=== PATIENT | female | born 1945 | race Caucasian/White ===

== ENCOUNTER → 2016-08-10 | Outpatient (CLI) | payer MEDICARE ==
--- NOTE | 2016-08-14 10:48 | MM ---
Reason for exam: screening (asymptomatic). Last mammogram was performed 1 year ago. History: Patient is postmenopausal. Benign excisional biopsy of the left breast, 1989. Physical Findings: A clinical breast exam by your physician is recommended on an annual basis and results should be correlated with mammographic findings. MG 3D Screening Mammo W/Cad Bilateral CC and MLO view(s) were taken. Prior study comparison: August 08, 2015, bilateral MG 3d screening mammo w/cad. August 06, 2014, bilateral MG screening mammo w CAD. July 10, 2012, bilateral digital screening mammo w/CAD. The breast tissue is heterogeneously dense. This may lower the sensitivity of mammography. Finding: There are typically benign round calcifications in the right breast. Developing asymmetry in the left breast anterior depth outer aspect. ASSESSMENT: Incomplete: need additional imaging evaluation, BI-RAD 0 RECOMMENDATION: Ultrasound of the right breast. [facility] will attempt to contact patient to return for ultrasound.
== END | disposition home or self-care (01) ==
LOC: RADMAMWWP 13:59
PROVIDERS: ATTEND Obstetrics & Gynecology
DX: Z13.1 Encounter for screening for diabetes mellitus (principal)
CPT/HCPCS: 77063; G0202

== ENCOUNTER → 2016-08-17 | Outpatient (CLI) | payer MEDICARE ==
--- NOTE | 2016-08-20 08:42 | USB ---
Reason for exam: additional evaluation requested from abnormal screening. History: Patient is postmenopausal. Benign excisional biopsy of the left breast, 1989. Physical Findings: Nurse did not find any significant physical abnormalities on exam. US Breast Workup Limited LT Left breast ultrasound demonstrates no cystic or solid lesion seen. These results were verbally communicated with the patient and result sheet given to the patient on 08/17/16. ASSESSMENT: Negative, BI-RAD 1 RECOMMENDATION: Return to routine screening mammogram schedule for both breasts.
== END | disposition home or self-care (01) ==
LOC: RADUSWWP 14:49
PROVIDERS: ATTEND Obstetrics & Gynecology
DX: R92.8 Other abnormal and inconclusive findings on diagnostic imaging of breast (principal)

== ENCOUNTER → 2016-10-18 | Outpatient (CLI) | payer MEDICARE ==
--- NOTE | 2016-10-19 10:20 | ECHOF ---
Referral Reason:R01.1 CARDIAC MURMUR UNSPECIFIED MEASUREMENTS -------- HEIGHT: 172.7 cm WEIGHT: 96.2 kg BP: 143/65 RVIDd: 2.6 cm (< 3.3) IVSd: 1.1 cm (0.6 - 1.1) LVIDd: 4.7 cm (3.9 - 5.3) LVPWd: 1.2 cm (0.6 - 1.1) IVSs: 1.5 cm LVIDs: 3.0 cm LVPWs: 1.5 cm LA Diam: 3.0 cm (2.7 - 3.8) LAESV Index (A-L): 37.47 ml/m Ao Diam: 3.3 cm (2.0 - 3.7) AV Cusp: 2.0 cm (1.5 - 2.6) MV EXCURSION: 10.738 mm (> 18.000) MV EF SLOPE: 25 mm/s (70 - 150) EPSS: 1.2 cm MV E Jhon: 1.02 m/s MV DecT: 233 ms MV A Jhon: 1.19 m/s MV E/A Ratio: 0.86 AV maxP.52 mmHg AV meanP.33 mmHg RAP: 5.00 mmHg RVSP: 29.32 mmHg FINDINGS -------- Sinus rhythm. This was a technically adequate study. The left ventricular size is normal. There is borderline concentric left ventricular hypertrophy. The right ventricle is normal in size. LA is midly dilated 29-33ml/m2. The right atrium is normal in size. There is mild aortic valve sclerosis. Peak/mean gradient across the Aortic Valve is 14.52mmHg / 7.33mmHg. Mild mitral annular calcification present. There is trace to mild mitral regurgitation. Mild tricuspid regurgitation present. Right ventricular systolic pressure is normal at < 35 mmHg. Pulmonic valve appears structurally normal. The aortic root, ascending aorta and aortic arch are normal. The ascending aorta is dilated measuring up to 37 mm The inferior vena cava is mildly dilated. The pericardium is normal. CONCLUSIONS -------- 1. Sinus rhythm. 2. Mild mitral annular calcification present. 3. There is trace to mild mitral regurgitation. 4. Mild tricuspid regurgitation present. 5. Right ventricular systolic pressure is normal at < 35 mmHg. 6. Pulmonic valve appears structurally normal. 7. The aortic root, ascending aorta and aortic arch are normal. 8. The ascending aorta is dilated measuring up to 37 mm 9. The inferior vena cava is mildly dilated. 10. The pericardium is normal. 11. This was a technically adequate study. 12. The left ventricular size is normal. 13. There is borderline concentric left ventricular hypertrophy. 14. The right ventricle is normal in size. 15. LA is midly dilated 29-33ml/m2. 16. The right atrium is normal in size. 17. There is mild aortic valve sclerosis. 18. Peak/mean gradient across the Aortic Valve is 14.52mmHg / 7.33mmHg. CAT SKINNER: Marialuisa Pickens RDCS
== END | disposition home or self-care (01) ==
LOC: RADECHMAIN 14:34
PROVIDERS: ATTEND Family Medicine
DX: I08.3 Combined rheumatic disorders of mitral, aortic and tricuspid valves (principal); Z00.00 Encounter for general adult medical examination without abnormal findings
CPT/HCPCS: 93306

== ENCOUNTER → 2018-06-19 | Outpatient (CLI) | payer MEDICARE ==
--- NOTE | 2018-06-19 16:21 | BD ---
EXAMINATION TYPE: Axial Bone Density DATE OF EXAM: 06/19/2018 COMPARISON: 07.10.2012 CLINICAL HISTORY: 72 YR OLD FEMALE....ICD-10 CODE: N95.1 POST MENOPAUSAL SYMPTOMS Height: 65.8 Weight: 232 FRAX RISK QUESTIONS: NOTHING TO NOTE RISK FACTORS HISTORY OF: CHILD ONLY Postmenopausal woman: YES AT AGE 48 Lost more than 2 inches in height since high school: YES MEDICATIONS: Thyroid Medications: YES, SYNTHROID, FOR ABOUT 40 YRS Additional Medications: OMEGA 3, VIT D AND CALCIUM Additional History: HX OF LT TKR EXAM MEASUREMENTS: Bone mineral densitometry was performed using the [employer] System. Bone mineral density as measured about the Lumbar spine is: ----- L1-L4(G/cm2): 1.180 T Score Values are as follows: ----- L1: -2.3 ----- L2: 0.5 ----- L3: 0.4 ----- L4: 0.9 ----- L1-L4: 1.180 Bone mineral density has: Increased 4.3% SINCE 07.10.2012 STUDY Bone mineral density about the R hip (g/cm2): 1.015 Bone mineral density about the L hip (g/cm2): 1.019 T Score values are as follows: -----R Neck: -1.0 -----L Neck: -1.1 -----R Total: 0.1 -----L Total: 0.1 Bone mineral density has: Decreased -3.7% SINCE 07.10.2012 STUDY FRAX%s: THERE IS A 9.1% CHANCE FOR A MAJOR OSTEOPOROTIC FX AND A 1.4% FOR HIP.....PROBABILITY OF F X IN 10 YRS TIME IMPRESSION: Osteopenia (T Score between -2.5 and -1). There is slightly increased risk of fracture and the patient may be considered for treatment. Re-Screen 2-5 years. NOTE: T-SCORE=SD OF THE YOUNG ADULT MEAN.
== END | disposition home or self-care (01) ==
LOC: RADBDWWP 09:11
PROVIDERS: ATTEND Obstetrics & Gynecology
DX: Z13.820 Encounter for screening for osteoporosis (principal); M85.80 Other specified disorders of bone density and structure, unspecified site; N95.1 Menopausal and female climacteric states
CPT/HCPCS: 77080

== ENCOUNTER → 2018-08-15 | Outpatient (CLI) | payer MEDICARE ==
--- NOTE | 2018-08-18 12:14 | MM ---
Reason for exam: screening (asymptomatic). Last mammogram was performed 2 years ago. History: Patient is postmenopausal. Benign excisional biopsy of the left breast, 1989. Physical Findings: A clinical breast exam by your physician is recommended on an annual basis and results should be correlated with mammographic findings. MG 3D Screening Mammo W/Cad Bilateral CC and MLO view(s) were taken. Prior study comparison: August 10, 2016, bilateral MG 3d screening mammo w/cad. August 08, 2015, bilateral MG 3d screening mammo w/cad. The breast tissue is heterogeneously dense. This may lower the sensitivity of mammography. There are benign appearing round calcifications bilaterally. There is no discrete abnormality. ASSESSMENT: Benign, BI-RAD 2 RECOMMENDATION: Routine screening mammogram of both breasts in 1 year.
== END | disposition home or self-care (01) ==
LOC: RADMAMWWP 10:40
PROVIDERS: ATTEND Obstetrics & Gynecology
DX: Z12.31 Encounter for screening mammogram for malignant neoplasm of breast (principal)
CPT/HCPCS: 77063; 77067

== ENCOUNTER → 2019-10-16 | Outpatient (CLI) | payer MEDICARE ==
--- NOTE | 2019-10-20 11:30 | MM ---
Reason for exam: screening (asymptomatic). Last mammogram was performed 1 year and 2 months ago. History: Patient is postmenopausal. Benign excisional biopsy of the left breast, 1989. Physical Findings: A clinical breast exam by your physician is recommended on an annual basis and results should be correlated with mammographic findings. MG 3D Screening Mammo W/Cad Bilateral CC and MLO view(s) were taken. XCCL view(s) were taken of the right breast. Prior study comparison: August 15, 2018, bilateral MG 3d screening mammo w/cad. August 10, 2016, bilateral MG 3d screening mammo w/cad. The breast tissue is heterogeneously dense. This may lower the sensitivity of mammography. There are benign appearing round calcifications bilaterally. There is no discrete abnormality. ASSESSMENT: Benign, BI-RAD 2 RECOMMENDATION: Routine screening mammogram of both breasts in 1 year.
== END | disposition home or self-care (01) ==
LOC: RADMAMWWP 10:38
PROVIDERS: ATTEND Family Medicine
DX: Z12.31 Encounter for screening mammogram for malignant neoplasm of breast (principal)
CPT/HCPCS: 77063; 77067

== ENCOUNTER → 2020-11-15 | Outpatient (CLI) | payer MEDICARE ==
--- NOTE | 2020-11-15 14:07 | USB ---
EXAMINATION TYPE: US breast complete LT DATE OF EXAM: 11/15/2020 COMPARISON: Mammogram same date CLINICAL HISTORY: Fullness left breast. Findings: All 4 quadrants, the retroareolar region of the left breast and the left axilla were scanned with ult rasound. There is an incidental cyst in the left breast at 2:00 measuring up to 0.4 cm. Minimal ductal ectasia is seen. Normal-appearing lymph node is noted in the left axilla. No sonographic correlate for left breast fullness. Clinical follow-up is recommended. IMPRESSION: No sonographic correlate for left breast fullness. Clinical follow-up is recommended. Bilateral mammogram is recommended in one year. BI-RADS 2, benign.
--- NOTE | 2020-11-15 14:28 | MM ---
Reason for exam: additional evaluation requested from prior study. Last mammogram was performed 1 year and 1 month ago. History: Patient is postmenopausal. Benign excisional biopsy of the left breast, 1989. Took hormonal contraceptives for 5 years beginning at age 18. Physical Findings: Nurse did not find any significant physical abnormalities on exam. MG 3D Diag Mammo W/Cad GODFREY Bilateral CC and MLO view(s) were taken. Prior study comparison: October 16, 2019, bilateral MG 3d screening mammo w/cad. August 15, 2018, bilateral MG 3d screening mammo w/cad. The breast tissue is heterogeneously dense. This may lower the sensitivity of mammography. No correlate for left breast swelling. Ultrasound recommended. These results were verbally communicated with the patient and result sheet given to the patient on 11/15/20. ASSESSMENT: Incomplete: need additional imaging evaluation, BI-RAD 0 RECOMMENDATION: Ultrasound of the left breast.
--- NOTE | 2020-11-15 15:25 | US ---
EXAMINATION TYPE: US carotid duplex BILAT DATE OF EXAM: 11/15/2020 COMPARISON: NONE CLINICAL HISTORY: R09.89 CAROTID BRUIT. Right pulsatile low right neck area. EXAM MEASUREMENTS: RIGHT: Peak Systolic Velocity (PSV) cm/sec ----- Right CCA: 41.0 ----- Right ICA: 74.5 ----- Right ECA: 70.8 ICA/CCA ratio: 1.8 RIGHT: End Diastole cm/sec ----- Right CCA: 9.9 ----- Right ICA: 24.2 ----- Right ECA: 0.6 LEFT: Peak Systolic Velocity (PSV) cm/sec ----- Left CCA: 64.0 ----- Left ICA: 79.5 ----- Left ECA: 57.8 ICA/CCA ratio: 1.2 LEFT: End Diastole cm/sec ----- Left CCA: 16.2 ----- Left ICA: 23.6 ----- Left ECA: 1.2 VERTEBRALS (direction of flow): Right Vertebral: Antegrade Left Vertebral: Antegrade Rhythm: Normal Tortuous Right CCA is noted proximally at patient's area of concern for pulsatile right supraclavicul ar area. Moderate mixed intimal wall changes are noted bilateral ICA and ECA, but PSV is wnl bilaterally. IMPRESSION: No sonographic evidence for hemodynamically significant stenosis in either carotid artery. Criteria for Assigning % of Stenosis / Diameter reduction (Estimation based on the indirect measurements of the internal carotid artery velocities (ICA PSV). 1. Normal (no stenosis)=ICA PSV < 125 cm/s: ratio < 2.0: ICA EDV<40 cm/s. 2. Less than 50% stenosis=ICA PSV < 125 cm/s: ratio < 2.0: ICA EDV<40 cm/s. 3. 50 to 69% stenosis=ICA PSV of 125 to 230 cm/s: ration 2.0 ? 4.0: ICA EDV 40-100 cm/s. 4. Greater than 70% stenosis to near occlusion= ICA PSV > 230 cm/s: ratio > 4.0: ICA EDV > 100 cm/s. 5. Near occlusion= ICA PSV velocities may be low or undetectable: variable ratio and ICA EDV. 6. Total occlusion=unable to detect flow.
== END | disposition home or self-care (01) ==
LOC: RADMAMWWP 12:37
PROVIDERS: ATTEND Family Medicine
DX: N63.21 Unspecified lump in the left breast, upper outer quadrant (principal); R92.8 Other abnormal and inconclusive findings on diagnostic imaging of breast; R09.89 Other specified symptoms and signs involving the circulatory and respiratory systems
CPT/HCPCS: 77066; 93880; 76641; G0279; 77062

== ENCOUNTER → 2021-11-23 | Outpatient (CLI) | payer MEDICARE ==
--- NOTE | 2021-11-24 15:34 | MM ---
Reason for Exam: Screening (asymptomatic). Last screening mammogram was performed 12 month(s) ago. Patient History: Menarche at age 11. First Full-Term at age 17. Postmenopausal. Hormonal Contraceptives for 5 years from age 18 until age 23. 1990, Benign Excisional Biopsy on the left side. Risk Values: Maria G 5 year model risk: 1.5%. NCI Lifetime model risk: 2.6%. Prior Study Comparison: 08/15/2018 Bilateral Screening Mammogram, [facility]. 10/16/2019 Bilateral Screening Mammogram, [facility]. 11/15/2020 Bilateral Diagnostic Mammogram, [facility]. Tissue Density: The breast tissue is heterogeneously dense. This may lower the sensitivity of mammography. Findings: Analyzed By CAD. Clustered group of calcifications are demonstrated in the right breast on the MLO view approximately 2.5 cm from the nipple in the anterior depth. New suspicious mass in either breast. Overall Assessment: Incomplete: need additional imaging evaluation, BI-RAD 0 Management: Diagnostic Mammogram of the right breast. A clinical breast exam by your physician is recommended on an annual basis and results should be correlated with mammographic findings. [facility] will attempt to contact patient to return for supplemental views and ultrasound if indicated. Electronically signed and approved by: Shayne Marin D.O.
== END | disposition home or self-care (01) ==
LOC: RADMAMWWP 16:11
PROVIDERS: ATTEND Family Medicine
DX: Z12.31 Encounter for screening mammogram for malignant neoplasm of breast (principal); Z78.0 Asymptomatic menopausal state
CPT/HCPCS: 77063; 77067

== ENCOUNTER → 2021-12-04 | Outpatient (CLI) | payer MEDICARE ==
--- NOTE | 2021-12-04 13:27 | MM ---
Reason for Exam: Additional evaluation requested from abnormal screening. Last screening mammogram was performed less than 1 month ago. Patient History: Menarche at age 11. First Full-Term at age 17. Postmenopausal. Hormonal Contraceptives for 5 years from age 18 until age 23. 1990, Benign Excisional Biopsy on the left side. Risk Values: Maria G 5 year model risk: 1.5%. NCI Lifetime model risk: 2.6%. Prior Study Comparison: 02/04/2005 Screening Mammogram, [facility]. 08/06/2014 Bilateral Screening Mammogram, [facility]. 08/08/2015 Bilateral Screening Mammogram, [facility]. 08/10/2016 Bilateral Screening Mammogram, [facility]. 08/17/2016 Left Diagnostic Ultrasound, [facility]. 08/15/2018 Bilateral Screening Mammogram, [facility]. 10/16/2019 Bilateral Screening Mammogram, [facility]. 11/15/2020 Bilateral Diagnostic Mammogram, [facility]. 11/23/2021 Bilateral MG 3D screening mammo w/cad, [facility]. Tissue Density: Right: The breast tissue is heterogeneously dense. This may lower the sensitivity of mammography. Findings: Analyzed By CAD. On magnification views, the questioned anterior calcifications represent benign vascular calcifications. No other specific abnormality seen. Overall Assessment: Benign, BI-RAD 2 Management: Screening Mammogram of both breasts in 1 year. 1. Patient should continue monthly self breast exams. 2. A clinical breast exam by your physician is recommended on an annual basis. 3. This exam should not preclude additional follow-up of suspicious palpable abnormalities. Results were given to the patient verbally at the time of exam. Electronically signed and approved by: Marguerite Orozco M.D. Radiologist
== END | disposition home or self-care (01) ==
LOC: RADMAMWWP 12:48
PROVIDERS: ATTEND Family Medicine
DX: R92.8 Other abnormal and inconclusive findings on diagnostic imaging of breast (principal)
CPT/HCPCS: 77065; G0279; 77061

== ENCOUNTER 2023-10-16 06:51 | Day surgery (SDC) | payer MEDICARE ==
[~2023-10-16 06:51] MED LIST: TETRACAINE 0.5% OPHTH (PF) DROPS 4 ML BTL OP PRN
[2023-10-16 07:20] VITALS: TEMP 97.1
[2023-10-16] MEDS: IV FLUID CONTINUATION 1,000 ML IV ONE (07:25)
[2023-10-16] MEDS: LACTATED RINGERS 1,000 ML IV SCH (07:25)
[2023-10-16] MEDS: CYCLOPENTOLATE 1% OPHTH SOLN 2 ML BTL OP PRN (07:30)
[2023-10-16] MEDS: PHENYLEPHRINE 2.5% OPHTH DRP 2ML OP PRN (07:33)
[2023-10-16 07:49] LABS: Glucose,Whole Blood 114 mg/dL (70-110)
[2023-10-16] MEDS ORDERED: MIDAZOLAM 2 MG/2 ML VIAL ONE (08:07)
[2023-10-16] MEDS ORDERED: fentaNYL (PF) 50 MCG/ML 2 ML AMP ONE (08:07)
[2023-10-16] MEDS: HYALURONATE SODIUM INTRAOCULAR 1 EACH SYRINGE (12MG/ML) INTRAOCULA ONE (08:30)
[2023-10-16] MEDS: LIDOCAINE 1% (PF) 10MG/ML VIAL SQ ONE (08:31)
[2023-10-16] MEDS: BALANCED SALT IRRIG SOLN COMB2 15 ML IRRIG.SOLN INTRAOCULA ONE (08:31)
[2023-10-16] MEDS: ATROPINE OPHTH SOLN 1% 5ML BTL RIGHT EYE ONE (08:31)
[2023-10-16] MEDS: EPINEPHrine (PF) 0.3 ML in BALANCED SALT IRRIG SOLN COMB2 500 ML IRRIGATION ONE (08:32)
[2023-10-16] MEDS: TIMOLOL 0.5% OPHTH DROPS 5 ML BTL OP PRN (08:32)
[2023-10-16] MEDS: MOXIFLOXACIN HCL 0.5% DROPS 3 ML BTL OP PRN (08:32)
--- NOTE | 2023-10-16 08:56 | P.OP ---
Date of Procedure: 10/16/23 Preoperative Diagnosis: NS & astig Postoperative Diagnosis: same Procedure(s) Performed: PIOL, OD Implants: [id number] 22.50 Anesthesia: MAC Surgeon: Rich Wheat Pathology: none sent Condition: stable Disposition: same day Indications for Procedure: blurry vision Operative Findings: radial tear, no crystalens
[2023-10-16 09:04] VITALS: PULSE 72
[2023-10-16 09:15] VITALS: BP 132/78; RESP 16
--- NOTE | 2023-10-17 00:52 | OP ---
OPERATIVE REPORT DATE OF SERVICE : 10/16/2023 PROCEDURES: Phacoemulsification of cataract and intraocular lens implant of the right eye. PREOPERATIVE DIAGNOSES: Nuclear sclerosis with regular astigmatism. POSTOPERATIVE DIAGNOSES: Nuclear sclerosis with regular astigmatism. ANESTHESIA: Topical. ESTIMATED BLOOD LOSS: None. SPECIMEN TAKEN: None. NARRATIVE: After obtaining the appropriate consent, the patient was brought to the operating room. There, she was placed under cardiac monitoring, prepped and draped in the usual sterile manner. She was approached from her right temporal side and using previously acquired corneal topography information, the axis of 179 degrees was identified and marked with a [facility] axis marker. This was followed by paracentesis at the 11 o'clock position through which 1% Xylocaine MPF 50:50 mix with balanced salt solution was injected into the anterior chamber. This was followed by stabilization of the anterior chamber with Amvisc. At the 9 o'clock position, a 2.75 mm ethan keratome was used to create a self- sealing corneal flap incision in a Langerman's fashion. Through this opening, a cystotome was used to begin a continuous tear capsulorrhexis. During the initiation of the rhexis as well as during the carrying of the capsulorrhexis using the Utrata forceps, the patient made several unexpected movements of the eye. However, there were no identified tears in the anterior capsule, which appeared to be intact and round at the end of the procedure. Hydrodissection and hydrodelineation of the lens were accomplished with balanced salt solution. Phacoemulsification of the lens utilizing phaco chop was accomplished in 10.88 seconds at 7.9% power. At this time, it was appreciated that there was a radial tear at approximately 7 o'clock in the patient's eye and careful removal of the remaining cortex using irrigation and aspiration was carried out through the rest of the capsule and especially carefully through where the radial tear was identified. Viscoelastic was then used to stabilize the capsular bag and a Bausch and Lomb MX60E 22.5 diopter posterior chamber intraocular lens was chosen as an alternative to the original Crystalens toric implant for an abundance of safety due to the placement of the Crystalens haptics, which would have coincided with the radial tear and possibly lead to an unstable position within the eye. The remaining viscoelastic was then removed from in and around the intraocular lens. The haptics of the MX60 resided at the 11 and 5 o'clock position within the eye. The eye was then brought to normal intraocular pressure through the paracentesis port and the wounds were confirmed watertight and stabilized using Tisseel. She then received 2 drops of 0.5% timolol followed by 2 drops of moxifloxacin and then was lightly patched and shielded in the usual manner. There were no additional complications encountered during the procedure. She tolerated the procedure well and was returned to outpatient recovery in good condition. MMKAREN / ALEXANDR: [id number] /
== END 2023-10-16 09:32 | disposition home or self-care (01) ==
LOC: OR 06:51
PROVIDERS: ATTEND Ophthalmology
DX: H52.221 Regular astigmatism, right eye (principal); H25.11 Age-related nuclear cataract, right eye; G47.33 Obstructive sleep apnea (adult) (pediatric); E03.9 Hypothyroidism, unspecified; Z79.890 Hormone replacement therapy; Z79.899 Other long term (current) drug therapy; Z98.890 Other specified postprocedural states
CPT/HCPCS: 66984; C1762; C1780; J2250; J0171; J3010; J2001

== ENCOUNTER 2023-11-13 10:06 | Day surgery (SDC) | payer MEDICARE, OTHER ==
[2023-11-11 12:07] VITALS: BMI 31.9
[2023-11-13 10:41] VITALS: TEMP 98
[2023-11-13] MEDS: IV FLUID CONTINUATION 1,000 ML IV ONE (10:43)
[2023-11-13 10:54] LABS: Glucose,Whole Blood 102 mg/dL (70-110)
[2023-11-13] MEDS: CYCLOPENTOLATE 1% OPHTH SOLN 2 ML BTL OP PRN (10:55)
[2023-11-13] MEDS: PHENYLEPHRINE 2.5% OPHTH DRP 2ML OP PRN (10:58)
[2023-11-13] MEDS: LACTATED RINGERS 1,000 ML IV SCH (10:59)
[2023-11-13] MEDS ORDERED: MIDAZOLAM 2 MG/2 ML VIAL ONE (11:51)
[2023-11-13] MEDS ORDERED: fentaNYL (PF) 50 MCG/ML 2 ML AMP ONE (11:51)
[2023-11-13] MEDS: MOXIFLOXACIN HCL 0.5% DROPS 3 ML BTL OP PRN (12:08)
[2023-11-13] MEDS: HYALURONATE SODIUM INTRAOCULAR 1 EACH SYRINGE (12MG/ML) INTRAOCULA ONE (12:08)
[2023-11-13] MEDS: LIDOCAINE 1% (PF) 10MG/ML VIAL MISCELLANE ONE (12:08)
[2023-11-13] MEDS: BALANCED SALT IRRIG SOLN COMB2 15 ML IRRIG.SOLN INTRAOCULA ONE (12:08)
[2023-11-13] MEDS: EPINEPHrine (PF) 0.3 ML in BALANCED SALT IRRIG SOLN COMB2 500 ML IRRIGATION ONE (12:09)
[2023-11-13] MEDS: TIMOLOL 0.5% OPHTH DROPS 5 ML BTL OP PRN (12:09)
--- NOTE | 2023-11-13 12:32 | P.OP ---
Date of Procedure: 11/13/23 Preoperative Diagnosis: NS & reg astig Postoperative Diagnosis: sane Procedure(s) Performed: PIOL, OS Implants: [id number] 22.50 Anesthesia: MAC Surgeon: Rich Wheat Pathology: none sent Condition: stable Disposition: same day Indications for Procedure: blurry vision Operative Findings: no complications
[2023-11-13 13:14] VITALS: BP 133/72; PULSE 72; RESP 20
--- NOTE | 2023-11-14 08:57 | OP ---
OPERATIVE REPORT DATE OF SERVICE : 11/13/2023 PROCEDURES PERFORMED: Phacoemulsification of cataract and intraocular lens implant of the left eye. PREOPERATIVE DIAGNOSIS: Nuclear sclerosis and regular astigmatism. POSTOPERATIVE DIAGNOSIS: Nuclear sclerosis and regular astigmatism. ANESTHESIA: Topical. ESTIMATED BLOOD LOSS: None. SPECIMEN TAKEN: None. NARRATIVE: After obtaining the appropriate consent, the patient was brought to the operating room. There she was placed under cardiac monitoring, prepped and draped in the usual sterile manner. Using previously acquired corneal topography information, an axis of 177 degrees was identified and marked with a [facility] axis marker. A 5.5-mm Hill ring was placed on the patient's cornea over the Purkinje reflex and at the 5 o'clock position, an MVR blade was used to create a paracentesis port. Through this opening, 1% Xylocaine MPF 50:50 mix with balanced salt solution was injected into the anterior chamber. This was followed by stabilization of the anterior chamber with Amvisc. At the 3 o'clock position, a 2.75-mm ethna keratome was used to create a self-sealing corneal flap incision in a Langerman's fashion. Through this opening, a cystotome was introduced to begin a continuous tear capsulorrhexis which was then completed using the [employer] forceps. Care was taken to ensure the size of the rhexis was the size of the cassie placed on the patient's central cornea. Hydrodissection and hydrodelineation were used to loosen the lens. This was followed by phacoemulsification of the lens utilizing phaco chop, which was completed in 10.75 seconds at 11.8% power. This was followed by installation of additional Xylocaine MPF and removal of the remaining cortical material from in and around the intraocular lens as well as careful polishing of the posterior capsule in capsule vacuum mode. Amvisc was then used to stabilize the capsular bag and using both Marina and Pepose capsule polishers any remaining cortical material was removed from the underside of the anterior capsular leaflet and is close to the equator as potentially possible. The temporal incision was enlarged slightly and a Bausch and Lomb Trulign model [id number], 22.5 diopter posterior chamber intraocular lens was then inserted into the capsular bag without difficulty. The lens was rotated approximately 270 degrees back and forth to ensure no remaining cortical material was impairing movement of the eye well. All remaining viscoelastic was removed from in and around the intraocular lens as well as the anterior chamber. Final orientation was with the cassie on the lens aligned with the 177 degrees previously placed on the patient's cornea. The wounds were confirmed watertight and to ensure watertight integrity, Tisseel was used and left in place for 90 seconds. Prior to adding 2 drops of 0.5% timolol as well as 2 drops of 0.5% moxifloxacin. She was then lightly patched and shielded in the usual manner. There were no complications from the procedure. She tolerated the procedure well. She returned to outpatient recovery in good condition. MMODL / IJN: [id number] /
== END 2023-11-13 13:14 | disposition home or self-care (01) ==
LOC: OR 10:06
PROVIDERS: ATTEND Ophthalmology
DX: H25.12 Age-related nuclear cataract, left eye (principal); H52.222 Regular astigmatism, left eye; I10 Essential (primary) hypertension; E07.9 Disorder of thyroid, unspecified; Z79.890 Hormone replacement therapy; Z79.899 Other long term (current) drug therapy
CPT/HCPCS: 66984; V2787; C1780; J2250; J0171; J3010; J2001

== ENCOUNTER → 2023-12-06 | Outpatient (CLI) | payer MEDICARE ==
--- NOTE | 2023-12-06 08:40 | BD ---
EXAMINATION TYPE: Axial Bone Density DATE OF EXAM: 12/06/2023 CLINICAL HISTORY: 78 years old Female. ICD-10 CODE: Z78.0 Post menopausal Height: 65.5 Weight: 207.2 FRAX RISK QUESTIONS: Alcohol (3 or more units per day): no Family History (Parent hip fracture): no Glucocorticoids (More than 3mos): no (Ex: prednisone, prednisolone, methylprednisolone, dexamethasone, and hydrocortisone). History of Fracture in Adulthood: no Secondary Osteoporosis: 1. Type 1 Diabetes: no 2. Hyperthyroidism: no 3. Menopause before 45: no 4. Malnutrition: no 5. Chronic liver disease: no Rheumatoid Arthritis: no Current Tobacco Use: no RISK FACTORS HISTORY OF: Hip Fracture (Right/Left): no Spine Fracture: no Surgery to Spine/Hip(right/left)/Wrist (right/left): no MEDICATIONS: Thyroid Medications: levothyroxine How Long: past 40 years Osteoporosis Medications: no EXAM MEASUREMENTS: Bone mineral densitometry was performed using the [employer]. Bone mineral density as measured about the Lumbar spine is: ----- L1-L4(G/cm2): 1.209 T Score Values are as follows: ----- L1: -1.4 ----- L2: 0.8 ----- L3: 1.0 ----- L4: 0.4 ----- L1-L4: 0.2 Z Score Values are as follows: ----- L1: -0.5 ----- L2: 1.7 ----- L3: 1.8 ----- L4: 1.3 ----- L1-L4: 1.1 Bone mineral density has: increased 2.9 % since study of: 05/26/2010 Bone mineral density about the R hip (g/cm2): 0.961 Bone mineral density about the L hip (g/cm2): 0.943 T Score values are as follows: -----R Neck: -1.4 -----L Neck: -1.4 -----R Total: -0.4 -----L Total: -0.5 Z Score values are as follows: -----R Neck: 0.1 -----L Neck: 0.1 -----R Total: 0.9 -----L Total: 0.8 Bone mineral density has: DECREASED -9.8 % since study of: 07/10/2012 FRAX%s: The graph provided illustrates a 12.4% chance for a major osteoporotic fx and a 2.8% chance f or the hips probability for fx in 10 years time. IMPRESSION: Normal (Values between +1 and -1 indicate normal bone mass). Consider repeating this study in 5 year s or sooner if there is some new clinical indication. NOTE: T-SCORE=SD OF THE YOUNG ADULT MEAN.
--- NOTE | 2024-01-01 14:01 | MM ---
Reason for Exam: Screening (asymptomatic). Last mammogram was performed 2 year(s) and 1 month(s) ago. Patient History: Menarche at age 11. First Full-Term at age 17. Postmenopausal. Hormonal Contraceptives for 5 years from age 18 until age 23. 1990, Benign Excisional Biopsy on the left side. Risk Values: Maria G 5 year model risk: 1.4%. NCI Lifetime model risk: 2.2%. Prior Study Comparison: 11/15/2020 Bilateral Diagnostic Mammogram, [facility]. 11/23/2021 Bilateral MG 3D screening mammo w/cad, [facility]. 12/04/2021 Right MG 3D work up w/cad RT, [facility]. Tissue Density: The breasts are heterogeneously dense, which may obscure small masses. Findings: Analyzed By CAD. Right breast: Asymmetry right breast 5.5 cm in upon MLO view inferiorly middle depth measuring 13 mm. Left breast: There is no suspicious group of microcalcifications or new suspicious mass. Overall Assessment: Incomplete: need additional imaging evaluation, BI-RAD 0 Management: Diagnostic Mammogram of the right breast. [facility] will attempt to contact patient to return for supplemental views and ultrasound if indicated. Patient should continue monthly self-breast exams. A clinical breast exam by your physician is recommended on an annual basis. This exam should not preclude additional follow-up of suspicious palpable abnormalities. Note on Maria G scores and lifetime risk: 1. A Maria G score greater than 3% is considered moderate risk. If this is the case, consider specialist referral to assess eligibility for a risk reducing agent. 2. If overall lifetime risk for the development of breast cancer is 20% or higher, the patient may qualify for future screening with alternating mammogram and breast MRI. Electronically signed and approved by: Omid Schmidt DO
== END | disposition home or self-care (01) ==
LOC: RADMAMWWP 07:19
PROVIDERS: ATTEND Family Medicine
DX: Z12.31 Encounter for screening mammogram for malignant neoplasm of breast (principal); R92.333 Mammographic heterogeneous density, bilateral breasts; Z78.0 Asymptomatic menopausal state
CPT/HCPCS: 77063; 77067; 77080

== ENCOUNTER → 2023-12-20 | Outpatient (CLI) | payer MEDICARE ==
--- NOTE | 2024-01-17 14:23 | CA ---
Transthoracic Echo Report Name: Yesenia Carrizales Age: 78 Gender: F : 1945 Exam Date: 12/20/2023 15:13 Exam Location: [facility] Ht (in): 67 Wt (lb): 220 Ordering Physician: Attending/Referring Phys: System Analyst Laya Eubanks RDCS Procedure CPT: Indications: Cardiac Hx: Technical Quality: Good Contrast 1: Total Dose (mL): Contrast 2: Total Dose (mL): MEASUREMENTS (Male / Female) Normal Values 2D ECHO LV Diastolic Diameter PLAX 5.0 cm 4.2 - 5.9 / 3.9 - 5.3 cm IVS Diastolic Thickness 1.3 cm 0.6 - 1.0 / 0.6 - 0.9 cm LVPW Diastolic Thickness 1.0 cm 0.6 - 1.0 / 0.6 - 0.9 cm LV Relative Wall Thickness 0.5 LVOT Diameter 2.3 cm LV Diastolic Volume MOD BP 111.7 cm??? 67 - 155 / 56 - 104 cm??? LV Systolic Volume MOD BP 39.8 cm??? 22 - 58 / 19 - 49 cm??? LV Ejection Fraction MOD BP 64.4 % >= 55 % LV Cardiac Index MOD BP 2765.4 cm???/min???m??? LV Diastolic Volume MOD 4C 115.2 cm??? LV Systolic Volume MOD 4C 42.3 cm??? LV Ejection Fraction MOD 4C 63.3 % LV Cardiac Index MOD 4C 2805.6 cm???/min???m??? LV Diastolic Length 4C 8.0 cm LV Systolic Length 4C 6.1 cm LV Diastolic Volume MOD 2C 105.3 cm??? LV Systolic Volume MOD 2C 35.3 cm??? LV Ejection Fraction MOD 2C 66.5 % LV Cardiac Index MOD 2C 2692.7 cm???/min???m??? LV Diastolic Length 2C 8.3 cm LV Systolic Length 2C 6.5 cm LA Volume 59.5 cm??? 18 - 58 / 22 - 52 cm??? LA Volume Index 26.9 cm???/m??? 16 - 28 cm???/m??? Ascending Aorta Diameter 3.8 cm DOPPLER AV Peak Velocity 240.3 cm/s AV Peak Gradient 23.1 mmHg AV Mean Velocity 186.0 cm/s AV Mean Gradient 15.0 mmHg AV Velocity Time Integral 49.8 cm LVOT Peak Velocity 125.6 cm/s LVOT Peak Gradient 6.3 mmHg LVOT Velocity Time Integral 23.6 cm LVOT Stroke Volume 94.3 cm??? LVOT Stroke Volume Index 44.8 ml/m??? LVOT Cardiac Index 3626.8 cm???/min???m??? AV Area Cont Eq vti 1.9 cm??? AV Area Cont Eq pk 2.1 cm??? MV Area PHT 3.1 cm??? Mitral E Point Velocity 58.2 cm/s Mitral A Point Velocity 105.0 cm/s Mitral E to A Ratio 0.6 MV Deceleration Time 247.1 ms TR Peak Velocity 244.0 cm/s TR Peak Gradient 23.8 mmHg Right Atrial Pressure 5.0 mmHg Pulmonary Artery Systolic Pressu 28.8 mmHg Right Ventricular Systolic Press 28.8 mmHg PV Peak Velocity 103.4 cm/s PV Peak Gradient 4.3 mmHg FINDINGS Left Ventricle Left ventricular ejection fraction is estimated at 60-65 %. Mildly increased septal wall thickness. Mildly increased posterior wall thickness. Mildly increased left ventricular diastolic volume. No obvious regional wall motion abnormalities. Right Ventricle Normal right ventricular size and function. Right ventricular systolic pressure within normal limits. Right Atrium Normal right atrial size. Left Atrium Mildly increased left atrial volume. Mildly increased left atrial area. Mitral Valve Structurally normal mitral valve. No evidence for mitral valve prolapse. No mitral stenosis. Trace mitral regurgitation. Aortic Valve Trileaflet aortic valve. No aortic valve stenosis or regurgitation. Tricuspid Valve Structurally normal tricuspid valve. No tricuspid stenosis. Trace tricuspid regurgitation. Pulmonic Valve Pulmonic valve not well visualized. No pulmonic stenosis. No pulmonic regurgitation. Pericardium No pericardial effusion. Aorta Normal size aortic root and proximal ascending aorta. CONCLUSIONS Left ventricular ejection fraction 60-65% Mild increased left ventricular wall thickness Mildly dilated left atrium Trace mitral regurgitation Trace tricuspid regurgitation Previewed by: Dr. Jeremias Fontanez DO (Electronically Signed) Final Date: 21 December 2023 12:31
== END | disposition home or self-care (01) ==
LOC: RADECHMAIN 14:35
PROVIDERS: ATTEND Family Medicine
DX: I08.1 Rheumatic disorders of both mitral and tricuspid valves (principal); R01.1 Cardiac murmur, unspecified
CPT/HCPCS: 93306

== ENCOUNTER → 2024-01-09 | Outpatient (CLI) | payer MEDICARE ==
--- NOTE | 2024-01-09 10:02 | MM ---
Reason for Exam: Additional evaluation requested from abnormal screening. Last screening mammogram was performed 1 month(s) ago. Patient History: Menarche at age 11. First Full-Term at age 17. Postmenopausal. Hormonal Contraceptives for 5 years from age 18 until age 23. 1989, Benign Excisional Biopsy on the left side. Risk Values: Maria G 5 year model risk: 1.4%. NCI Lifetime model risk: 2.2%. Prior Study Comparison: 10/16/2019 Bilateral Screening Mammogram, [facility]. 11/15/2020 Bilateral Diagnostic Mammogram, [facility]. 11/15/2020 Left Diagnostic Ultrasound, [facility]. 11/23/2021 Bilateral MG 3D screening mammo w/cad, [facility]. 12/04/2021 Right MG 3D work up w/cad RT, [facility]. 12/06/2023 Bilateral MG 3D screening mammo w/cad, [facility]. Tissue Density: Right: The breasts are heterogeneously dense, which may obscure small masses. Findings: Analyzed By CAD. A 1.5 cm asymmetric density becomes less defined but incompletely disperses on spot 3-D MLO view. Not as well-seen on the 3-D lateral view. Further ultrasound evaluation is recommended. Overall Assessment: Incomplete: need additional imaging evaluation, BI-RAD 0 Management: Diagnostic Breast Ultrasound of the right breast. Inferior half. Electronically signed and approved by: Marguerite Orozco M.D. Radiologist
--- NOTE | 2024-01-09 10:58 | USB ---
Reason for Exam: Additional evaluation requested from abnormal screening. Patient History: Menarche at age 11. First Full-Term at age 17. Postmenopausal. Hormonal Contraceptives for 5 years from age 18 until age 23. 1990, Benign Excisional Biopsy on the left side. Risk Values: Maria G 5 year model risk: 1.4%. NCI Lifetime model risk: 2.2%. Technique: Method: Targeted. Prior Study Comparison: 11/23/2021 Bilateral MG 3D screening mammo w/cad, [facility]. 12/04/2021 Right MG 3D work up w/cad RT, [facility]. 12/06/2023 Bilateral MG 3D screening mammo w/cad, [facility]. Findings: The lower section of the breast of the right breast, the axilla of the right breast and the retroareolar of the right breast were scanned. Targeted ultrasound of the right breast 3:00 to 9:00 including scanning of the subareolar region and axilla. At the 3:00 position, 4 cm from the nipple, there is a vague heterogeneous area measuring 1.4 x 0.6 x 1.2 cm. On radial imaging, it has the appearance of intermixed fatty tissue adjacent to dense tissue rather than a true lesion. More superior than expected for the mammographic finding. No other solid or cystic lesion or axillary lymphadenopathy. Minimal subareolar duct ectasia is noted. Six-month follow-up is recommended. Overall Assessment: Probably benign, BI-RAD 3 Management: Diagnostic Mammogram of the right breast in 6 months. Diagnostic Breast Ultrasound of the right breast in 6 months. A clinical breast exam by your physician is recommended on an annual basis and results should be correlated with mammographic findings. This exam should not preclude additional follow-up of suspicious palpable abnormalities. Results were given to the patient verbally at the time of exam. Electronically signed and approved by: Marguerite Orozco M.D. Radiologist
== END | disposition home or self-care (01) ==
LOC: RADMAMWWP 09:35
PROVIDERS: ATTEND Family Medicine
DX: R92.8 Other abnormal and inconclusive findings on diagnostic imaging of breast
CPT/HCPCS: 77061; 77065